=== PATIENT | male | born 1980 | race Caucasian/White ===

== ENCOUNTER 2021-07-30 16:06 | Observation (INO) ==
[2021-07-30] MEDS ORDERED: IOPAMIDOL 100 ML BOTTLE IV ONE (16:07)
--- NOTE | 2021-07-30 16:51 | Emergency Department Note ---
HPI General Chief complaint: Abdominal Pain Stated complaint: Abd pain Time Seen by Provider: 07/30/21 16:51 Source: patient Mode of arrival: ambulatory Limitations: no limitations History of Present Illness HPI Narrative: 41-year-old male with past medical history of HODA, A. fib on warfarin, hypertension, and obesity presenting with abdominal pain. Patient states he has had periumbilical abdominal pain that has been mild for the past week but today the pain became more severe and localized to his right periumbilical area. He had 3 episodes of nonbloody, nonbilious emesis. Denies any diarrhea or blood in the stool. No dysuria or hematuria. History of cholecystectomy, denies any other abdominal surgeries. No fever, cough, or shortness of breath. Related Data Previous Rx's Medication Instructions Recorded Cpap machine and supplies #1 ea 09/29/19 lisinopril 10 mg tablet 10 mg PO DAILY #90 tab 08/02/20 warfarin 10 mg tablet 10 mg PO QDAY #90 tab 08/02/20 metoprolol succinate 50 mg 100 mg PO QHS #90 tab 07/21/21 tablet,extended release 24 hr Allergies Allergy/AdvReac Type Severity Reaction Status Date / Time aspirin Allergy Mild Other Verified 07/30/21 16:06 Review of Systems ROS ROS Narrative: Narrative: Constitutional: Denies fever or chills ENT ED: Denies throat pain Cardiovascular: Denies chest pain or palpitations Respiratory: Denies shortness of breath or cough Gastrointestinal: Reports abdominal pain, nausea and vomiting; Denies diarrhea or melena Genitourinary: Denies dysuria or frequency Musculoskeletal: Denies back pain or joint swelling Integumentary: Denies rash Neurological: Denies headache Psychiatric: Denies anxiety Endocrine: Denies fatigue Hematological/Lymphatic: Denies easy bleeding COUNTS INCLUDE 234 BEDS AT THE [facility] Narrative Patient History Narrative: Narrative: Medical/Surgical/Family History All Active Problems (Updated 07/30/21 @ 19:11 by Cesar Pedraza MD) Partial small bowel obstruction (Acute) Abdominal hernia (Acute) Abdominal pain (Acute) Anticoagulated on Coumadin (Acute) Hay fever (Chronic) Allergies (Chronic) Atrial fibrillation (Chronic) Body mass index 50.0-59.9, adult (Chronic) Obstructive sleep apnea (Chronic) Morbid obesity (Chronic) Hypertension (Chronic) Biliary colic (Acute) Abdominal pain, acute, right upper quadrant (Acute) Chewing tobacco use (Acute) Obstructive sleep apnea (Chronic) Morbid obesity due to excess calories (Chronic) Hypertension (Acute) Atrial fibrillation with controlled ventricular rate (Acute) Upper abdominal pain (Acute) Medical History (Updated 07/30/21 @ 19:11 by Cesar Pedraza MD) Allergies Atrial fibrillation Body mass index 50.0-59.9, adult Hay fever Hypertension Morbid obesity Obstructive sleep apnea Surgical History History of laparoscopic cholecystectomy 01/25/2018 Family History Mother Hypertension Obstructive sleep apnea Social History Smoking Status: Smokeless tobacco Alcohol Intake Frequency: holiday/special occasion only Substance Use: does not use Exam Narrative Narrative: Narrative: General Limitations: no limitations General appearance: Present alert, in no apparent distress and obese Head Head: Present atraumatic and normocephalic Eye Eye: Present normal appearance and EOMI; Absent scleral icterus or conjunctival injection ENT ENT: Present normal oropharynx and mucous membranes moist Neck Neck: Present normal inspection, full ROM and trachea midline Chest Chest: Present symmetric chest wall rise Respiratory Respiratory: Present normal lung sounds bilaterally; Absent respiratory distress, wheezes, stridor, accessory muscle use or prolonged expiratory phase Cardiovascular Cardiovascular: Present regular rate and normal rhythm; Absent systolic murmur or diastolic murmur Adbominal Abdominal: Present soft and other (Right periumbilical hernia noted with tenderness but no erythema or warmth.); Absent distention, guarding or rebound Extremities Extremities: Present normal inspection; Absent pretibial edema Back Back: Present normal inspection; Absent CVA tenderness (R) or CVA tenderness (L) Neurological Neurological: Present alert, oriented X3 and CN II-XII intact; Absent motor sensory deficit Psychiatric Psychiatric: Present normal affect and normal mood Skin Skin: Present warm (WNL) and dry Course Consultations Consultation #1: Dr. Carter, general surgery Time: 18:54 Vital Signs Vital signs: Vital Signs Temperature 97.7 F 07/30/21 16:07 Pulse Rate 103 H 07/30/21 16:07 Respiratory Rate 20 07/30/21 16:07 Blood Pressure 171/100 07/30/21 16:07 Pulse Oximetry (%) 98 07/30/21 16:07 Temperature 97.7 F 07/30/21 16:07 Pulse Rate 67 07/30/21 18:30 Respiratory Rate 20 07/30/21 16:07 Blood Pressure 140/105 07/30/21 17:16 Pulse Oximetry (%) 95 07/30/21 18:30 MDM MDM Narrative Medical decision making narrative: 41-year-old male presenting with abdominal pain. He does have tenderness and what feels like a periumbilical hernia on exam. Labs are stable, INR is 1.2. EKG shows atrial fibrillation with no ischemic changes. CT abdomen obtained which shows a 9cm paraumbilical hernia containing a partially obstructed segment of the distal ileum with moderate edema in the hernia sac. I attempted to reduce the hernia at bedside after placing the patient in Trendelenburg and applying i ce to the hernia area. I was unable to palpate the defect or reduce the hernia. I discussed the patient with Dr. Carter of surgery who will come to the ED and evaluate the patient. Patient signed out to oncoming MD, Dr. Grey, pending surgical consultation. Lab Data Lab results reviewed: Yes I reviewed the patient's lab results. Result diagrams: 07/30/21 17:09 07/30/21 17:09 Labs: Lab Results 07/30/21 07/30/21 07/30/21 Range/Units 17:09 17:09 17:10 WBC 14.7 H (4.5-11.0) K/mcL RBC 6.04 (4.63-6.08) M/mcL Hgb 17.1 (13.7-17.5) g/dL Hct 52.3 H (40.1-51.0) % MCV 86.6 (80.0-100.0) fL MCH 28.3 (26.0-34.0) pg MCHC 32.7 (31.0-36.0) g/dL RDW 12.9 (11.5-14.5) % Plt Count 304 (140-440) K/mcL MPV 11.2 H (7.4-10.4) fL Neut % (Auto) 88.4 H (38.0-78.0) % Lymph % (Auto) 6.5 L (15.5-49.0) % [place] % (Auto) 4.9 (1.0-12.0) % Eos % (Auto) 0.1 (0.0-7.0) % Baso % (Auto) 0.1 (0.0-2.0) % Lymph # (Auto) 0.96 L (1.50-4.80) K/mcL [place] # (Auto) 0.72 (0.10-0.90) K/mcL Eos # (Auto) 0.01 (0.00-0.70) K/mcL Baso # (Auto) 0.02 (0.00-0.30) K/mcL Absolute Neutrophils 12.95 H (1.80-8.00) K/mcL PT 16.1 H (11.9-14.5) sec INR 1.2 H (0.9-1.1) Sodium 134 (133-145) mmol/L Potassium 4.4 (3.3-5.1) mmol/L Chloride 97 (96-108) mmol/L Carbon Dioxide 25 (22-30) mmol/L Anion Gap 12.0 (8.0-16.0) BUN 9 (6-20) mg/dL Creatinine 0.9 (0.7-1.2) mg/dL GFR Calculation 105 Glucose 119 H (70-105) mg/dL Calcium 9.0 (8.6-10.4) mg/dL Total Bilirubin 0.9 (0.1-1.0) mg/dL AST 17 (<40) U/L ALT 18 (<40) U/L Alkaline Phosphatase 77 (39-117) U/L Total Protein 7.6 (5.9-8.4) gm/dL Albumin 4.0 (3.2-5.2) gm/dL Globulin 3.6 (2.2-3.7) gm/dL Albumin/Globulin Ratio 1.1 (1.0-2.3) Lipase 13 (7-60) U/L Radiology Data Radiology results reviewed: Yes I reviewed the patient's radiology results. Radiology results narrative: Ordering Physician:Cesar Pedraza M.D. Date of Service:07/30/21 Procedure(s):CT abdomen pelvis w con CLINICAL INFORMATION: Abdominal pain and vomiting COMPARISON: None. TECHNIQUE: Following enteric contrast, 80 cc of Isovue-370 were injected intravenously, and 60 seconds later, 0.625 mm helical slices were obtained from the mid heart through the subtrochanteric regions. Following reconstruction, 2.5 mm sagittal, coronal and axial reformatted images were processed and reviewed at bone, lung and soft tissue windows. Five minutes later, 0.625 mm helical slices were obtained from the mid heart through the kidneys and viewed at soft tissue windows.The exam was performed using radiation dose optimization techniques including, but not limited to, automated exposure control, adjustment of the mA and/or kV according to patient size and use of iterative reconstruction technique. FINDINGS: The lung bases are clear. No effusions. The visualized heart is grossly normal. Abdominal images show the gallbladder and bile ducts, liver, both kidneys, adrenal glands, spleen, pancreas and aorta, including aortic branches, are normal in size, configuration and attenuation without focal lesion. There is no free air or adenopathy. Pelvic images show normal urinary bladder, prostate and seminal vesicles. A 9 cm periumbilical hernia contains a segment of ileum and edematous mesenteric fat. It has resulted in partial small bowel obstruction: The proximal small bowel and stomach are mildly dilated and the small bowel, distal to the hernia is decompressed. Colon is unremarkable. Small amount of free fluid is noted in the true pelvis Bone windows show no osseous abnormality. L4-5 moderate broad disc protrusion results in moderate central canal, severe left and moderate right IV foraminal narrowing. The exiting L4 nerve roots are impinged IMPRESSION: 9 cm paraumbilical hernia containing a partially obstructed segment of distal ileum with moderate edema in hernia sac. Proximal small bowel is dilated with decompression of the distal small bowel. Small amount of free fluid in the true pelvis compatible with early third spacing. Interpreted and Authenticated by: Edilberto Feliz 07/30/21 EKG Data EKG #1: EKG attestation: Yes I reviewed and interpreted this EKG. and Yes There are no EKG findings of acute coronary syndrome EKG results narrative: Atrial fibrillation at [address] elevation or depression. Interpretation: no acute changes Discharge Plan Patient/Caregiver Discharge Instructions Pt seen by AUDIO VIDEO TECHNICIAN/PA only: No Clinical Impression: Partial small bowel obstruction, Abdominal hernia Patient Disposition: Still a Patient Follow up with: Stefani Carter ARNP [Primary Care Provider] - Prescriptions: No Action (DME) Cpap machine and supplies Qty: 1 0RF Rx Instructions: As directed metoprolol succinate 50 mg tablet extended release 24 hr 100 mg PO QHS Qty: 90 3RF lisinopril 10 mg tablet 10 mg PO DAILY Qty: 90 3RF warfarin 10 mg tablet 10 mg PO QDAY Qty: 90 3RF
[2021-07-30] MEDS ORDERED: morphine 4 MG/ML VIAL IV ONE ×2 (17:02→18:18)
[2021-07-30] MEDS ORDERED: 0.9 % SODIUM CHLORIDE 1,000 ML IV ONE (17:02)
[2021-07-30] MEDS ORDERED: ONDANSETRON 4 MG/2 ML VIAL IV ONE (17:02)
[2021-07-30 17:34] LABS: Basophils # (Auto) 0.02 K/mcL (0.00-0.30); Basophils % (Auto) 0.1 % (0.0-2.0); Eosinophils # (Auto) 0.01 K/mcL (0.00-0.70); Eosinophils % (Auto) 0.1 % (0.0-7.0); Hematocrit 52.3 % (40.1-51.0); Hemoglobin 17.1 g/dL (13.7-17.5); Lymphocytes # (Auto) 0.96 K/mcL (1.50-4.80); Lymphocytes % (Auto) 6.5 % (15.5-49.0); Mean Cell Volume 86.6 fL (80.0-100.0); Mean Corpuscular HGB Conc 32.7 g/dL (31.0-36.0); Mean Platelet Volume 11.2 fL (7.4-10.4); Monocytes # (Auto) 0.72 K/mcL (0.10-0.90); Monocytes % (Auto) 4.9 % (1.0-12.0); Neutrophils % (Auto) 88.4 % (38.0-78.0); Platelet Count 304 K/mcL (140-440); RBC 6.04 M/mcL (4.63-6.08); Red Cell Distribution Width 12.9 % (11.5-14.5); WBC 14.7 K/mcL (4.5-11.0)
[2021-07-30 17:56] LABS: ALT/SGPT 18 U/L (<40); AST/SGOT 17 U/L (<40); Albumin/Globulin Ratio 1.1 (1.0-2.3); Alkaline Phosphatase 77 U/L (39-117); Bilirubin,Total 0.9 mg/dL (0.1-1.0); Blood Urea Nitrogen 9 mg/dL (6-20); Carbon Dioxide 25 mmol/L (22-30); Chloride 97 mmol/L (96-108); Globulin 3.6 gm/dL (2.2-3.7); Glomerular Filtration Rate 105; Glucose 119 mg/dL (70-105)
--- NOTE | 2021-07-30 18:12 | Cat Scan Report ---
CLINICAL INFORMATION: Abdominal pain and vomiting COMPARISON: None. TECHNIQUE: Following enteric contrast, 80 cc of Isovue-370 were injected intravenously, and 60 seconds later, 0.625 mm helical slices were obtained from the mid heart through the subtrochanteric regions. Following reconstruction, 2.5 mm sagittal, coronal and axial reformatted images were processed and reviewed at bone, lung and soft tissue windows. Five minutes later, 0.625 mm helical slices were obtained from the mid heart through the kidneys and viewed at soft tissue windows.The exam was performed using radiation dose optimization techniques including, but not limited to, automated exposure control, adjustment of the mA and/or kV according to patient size and use of iterative reconstruction technique. FINDINGS: The lung bases are clear. No effusions. The visualized heart is grossly normal. Abdominal images show the gallbladder and bile ducts, liver, both kidneys, adrenal glands, spleen, pancreas and aorta, including aortic branches, are normal in size, configuration and attenuation without focal lesion. There is no free air or adenopathy. Pelvic images show normal urinary bladder, prostate and seminal vesicles. A 9 cm periumbilical hernia contains a segment of ileum and edematous mesenteric fat. It has resulted in partial small bowel obstruction: The proximal small bowel and stomach are mildly dilated and the small bowel, distal to the hernia is decompressed. Colon is unremarkable. Small amount of free fluid is noted in the true pelvis Bone windows show no osseous abnormality. L4-5 moderate broad disc protrusion results in moderate central canal, severe left and moderate right IV foraminal narrowing. The exiting L4 nerve roots are impinged IMPRESSION: 9 cm paraumbilical hernia containing a partially obstructed segment of distal ileum with moderate edema in hernia sac. Proximal small bowel is dilated with decompression of the distal small bowel. Small amount of free fluid in the true pelvis compatible with early third spacing. Interpreted and Authenticated by: Edilberto Feliz 07/30/21
[2021-07-30 18:50] LABS: INR 1.2 (0.9-1.1); Prothrombin Time 16.1 sec (11.9-14.5)
[2021-07-30] MEDS ORDERED: ONDANSETRON 4 MG/2 ML VIAL IV PRN (19:37)
--- NOTE | 2021-07-30 19:37 | General Surg History&Physical ---
HPI History of Present Illness Patient information: Note initiated : 07/30/21 at 7:28 pm Service Date, if different from initiated Date: [] Patient: Shay Wu a 41 y/o M admitted on for Abd pain. Chief Complaint: [] Chief complaint: Partial small bowel obstruction History of present illness: Mr. Wu is a 41 year old M admitted via the ER for partial small bowel obstruction. The patient states that he has had periumbilical pain for greater than a week. The pain became more severe this afternoon and he had episodes of nausea and vomiting. He is seen in the emergency room and CT shows a partial loop of small bowel in the supraumbilical fascial defect but without total obstruction. There is some thickening of the bowel and the distal bowel is decompressed compatible with partial small bowel obstruction. Patient is on Coumadin with PT of 16. He is admitted and will be given fresh frozen plasma tonight with plans for repair of incisional hernia in the morning. Review of Systems All systems: reviewed and no additional remarkable complaints except as stated Cardiovascular Additional comments: Chronic atrial fibrillation on Coumadin therapy Respiratory Respiratory: Present snoring Additional comments: Chronic sleep apnea PFSH PFSH All Active Problems (Updated 07/30/21 @ 19:35 by Graciela Carter MD) Incisional hernia (Acute) Partial small bowel obstruction (Acute) Abdominal hernia (Acute) Abdominal pain (Acute) Anticoagulated on Coumadin (Acute) Hay fever (Chronic) Allergies (Chronic) Atrial fibrillation (Chronic) Body mass index 50.0-59.9, adult (Chronic) Obstructive sleep apnea (Chronic) Morbid obesity (Chronic) Hypertension (Chronic) Biliary colic (Acute) Abdominal pain, acute, right upper quadrant (Acute) Chewing tobacco use (Acute) Obstructive sleep apnea (Chronic) Morbid obesity due to excess calories (Chronic) Hypertension (Acute) Atrial fibrillation with controlled ventricular rate (Acute) Upper abdominal pain (Acute) Medical History (Updated 07/30/21 @ 19:35 by Graciela Carter MD) Allergies Atrial fibrillation Body mass index 50.0-59.9, adult Hay fever Hypertension Morbid obesity Obstructive sleep apnea Surgical History History of laparoscopic cholecystectomy 01/25/2018 Family History Mother Hypertension Obstructive sleep apnea Social History marital status: occupational status: 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 other: 2 Children alcohol intake frequency: holiday/special occasion only substance use type: does not use MEDS/ALLERGIES Home Medications and Allergies Home Medications Medication Instructions Recorded Confirmed Type Cpap machine and supplies #1 ea 09/29/19 07/30/21 Rx lisinopril 10 mg tablet 10 mg PO DAILY #90 tab 08/02/20 07/30/21 Rx warfarin 10 mg tablet 10 mg PO QDAY #90 tab 08/02/20 07/30/21 Rx metoprolol succinate 50 mg 100 mg PO QHS #90 tab 07/21/21 07/30/21 Rx tablet,extended release 24 hr Allergies Allergy/AdvReac Type Severity Reaction Status Date / Time aspirin Allergy Mild Other Verified 07/30/21 16:06 Physical Examination Vital Signs Vital signs: Temp Pulse Resp BP Pulse Ox 97.7 F 76 20 140/105 96 07/30/21 16:07 07/30/21 19:07 07/30/21 16:07 07/30/21 17:16 07/30/21 19:07 General physical appearance General physical exam: obese (Morbid obesity) Eyes Eye exam: PERRL and normal ocular movement ENT ENT exam: normal mucosa, no hearing loss and no congestion Head Head exam IM: Present atraumatic, normal inspection and normocephalic Neck Neck exam: no masses, no bruits, trachea midline, no lymphadenopathy and no venous distension Cardiovascular Cardiovascular exam IM: Present irregular rhythm, +S1 and +S2 Respiratory Respiratory exam: normal expansion, normal respiratory effort, clear to auscultation and other (Good clear breath sounds bilaterally) Abdomen Abdomen: Present bowel sounds (Active bowel sounds) and masses (Tender periumbilical mass) Hernia: Present incisional (Supraumbilical incisional hernia) Integumentary Integumentary: Present no rash, no growths and no abnormal pigmentation Neurologic Neurologic: Present normal coordination and normal sensation Musculoskeletal Musculoskeletal: Present normal gait and normal posture Psychiatric Psychiatric: Present oriented to time, oriented to person, oriented to place, speech is normal and memory intact Results Labs Result diagrams: 07/30/21 17:09 07/30/21 17:09 Labs: Abnormal lab results 07/30/21 07/30/21 07/30/21 Range/Units 17:09 17:09 17:10 WBC 14.7 H (4.5-11.0) K/mcL Hct 52.3 H (40.1-51.0) % MPV 11.2 H (7.4-10.4) fL Neut % (Auto) 88.4 H (38.0-78.0) % Lymph % (Auto) 6.5 L (15.5-49.0) % Lymph # (Auto) 0.96 L (1.50-4.80) K/mcL Absolute Neutrophils 12.95 H (1.80-8.00) K/mcL PT 16.1 H (11.9-14.5) sec INR 1.2 H (0.9-1.1) Glucose 119 H (70-105) mg/dL Diabetes panel 07/30/21 Range/Units 17:09 Sodium 134 (133-145) mmol/L Potassium 4.4 (3.3-5.1) mmol/L Chloride 97 (96-108) mmol/L Carbon Dioxide 25 (22-30) mmol/L BUN 9 (6-20) mg/dL Creatinine 0.9 (0.7-1.2) mg/dL Glucose 119 H (70-105) mg/dL Calcium 9.0 (8.6-10.4) mg/dL AST 17 (<40) U/L ALT 18 (<40) U/L Alkaline Phosphatase 77 (39-117) U/L Total Protein 7.6 (5.9-8.4) gm/dL Albumin 4.0 (3.2-5.2) gm/dL Calcium panel 07/30/21 Range/Units 17:09 Calcium 9.0 (8.6-10.4) mg/dL Albumin 4.0 (3.2-5.2) gm/dL Pituitary panel 07/30/21 Range/Units 17:09 Sodium 134 (133-145) mmol/L Potassium 4.4 (3.3-5.1) mmol/L Chloride 97 (96-108) mmol/L Carbon Dioxide 25 (22-30) mmol/L BUN 9 (6-20) mg/dL Creatinine 0.9 (0.7-1.2) mg/dL Glucose 119 H (70-105) mg/dL Calcium 9.0 (8.6-10.4) mg/dL Adrenal panel 07/30/21 Range/Units 17:09 Sodium 134 (133-145) mmol/L Potassium 4.4 (3.3-5.1) mmol/L Chloride 97 (96-108) mmol/L Carbon Dioxide 25 (22-30) mmol/L BUN 9 (6-20) mg/dL Creatinine 0.9 (0.7-1.2) mg/dL Glucose 119 H (70-105) mg/dL Calcium 9.0 (8.6-10.4) mg/dL Total Bilirubin 0.9 (0.1-1.0) mg/dL AST 17 (<40) U/L ALT 18 (<40) U/L Alkaline Phosphatase 77 (39-117) U/L Total Protein 7.6 (5.9-8.4) gm/dL Albumin 4.0 (3.2-5.2) gm/dL All other labs normal. A/P Assessment and plan (1) Partial small bowel obstruction: Status: Acute (2) Incisional hernia: Status: Acute (3) Anticoagulated on Coumadin: Status: Acute (4) Obstructive sleep apnea: Status: Chronic (5) Morbid obesity: Status: Chronic (6) Hypertension: Status: Chronic Qualifiers: Hypertension type: essential hypertension Qualified Code(s): I10 - Essential (primary) hypertension (7) Atrial fibrillation with controlled ventricular rate: Status: Acute Narrative A/P Narrative: PT/INR in the morning Transfuse 2 units fresh frozen plasma tonight N.p.o. except for ice chips and popsicles with total n.p.o. after midnight Zosyn 4.5 g IV every 6 hours EKG Chest x-ray Time Spent With Patient Time: Total time spent is greater than 50% in coordination of care (as documented) at patient's floor/unit and/or counseling patient:
[2021-07-30] MEDS ORDERED: PROMETHAZINE 25 MG/ML VIAL IM PRN (19:42)
[2021-07-30] MEDS ORDERED: 0.9 % SODIUM CHLORIDE 250 ML IV SCH (19:45)
[2021-07-30] MEDS: HYDROmorphone 1 MG/ML SYRINGE IV PRN ×2 (19:52→22:24)
[2021-07-30] MEDS: 0.9 % SODIUM CHLORIDE 1,000 ML IV SCH (22:18)
[2021-07-30] MEDS: PIPERACILLIN SODIUM/TAZOBACTAM 4.5 GM in DEXTROSE 5% IN WATER 50 ML IV SCH (22:24)
[2021-07-30] MEDS: 0.9 % SODIUM CHLORIDE 10 ML SYRINGE IV SCH (22:32)
[2021-07-30] MEDS: DOCUSATE SODIUM 100 MG CAPSULE PO SCH (22:32)
[2021-07-30] MEDS: SENNOSIDES 1 TABLET PO SCH (22:32)
[2021-07-31] MEDS: HYDROmorphone 1 MG/ML SYRINGE IV PRN ×3 (01:36→06:46)
[2021-07-31] MEDS: PIPERACILLIN SODIUM/TAZOBACTAM 4.5 GM in DEXTROSE 5% IN WATER 50 ML IV SCH ×5 (02:13→23:07)
[2021-07-31 04:46] LABS: Appearance,Urine Clear (Clear); Bilirubin,Urine Negative (Negative); Color,Urine Yellow; Culture Indicated,Urine No; Glucose,Urine (UA) Negative (Negative); Ketones,Urine Trace mg/dL (Negative); Leukocyte Esterase,Urine Negative /uL (Negative); Mucus,Urine FEW /hpf; Nitrate,Urine Negative (Negative); PH,Urine 5.5 (5.0-9.0); Protein,Urine Trace mg/dL (Negative); Specific Gravity,Urine 1.025 (1.000-1.035); Urine Blood Negative ery/mcL (Negative); Urine RBC < 1 /hpf (0-3); Urine Squamous Epithelial Cell 2 /hpf (0-4); Urine WBC 3 /hpf (0-4); Urobilinogen,Urine Normal
[2021-07-31] MEDS: 0.9 % SODIUM CHLORIDE 10 ML SYRINGE IV SCH ×3 (05:20→21:36)
[2021-07-31 06:44] LABS: Basophils # (Auto) 0.02 K/mcL (0.00-0.30); Basophils % (Auto) 0.1 % (0.0-2.0); Eosinophils # (Auto) 0.02 K/mcL (0.00-0.70); Eosinophils % (Auto) 0.1 % (0.0-7.0); Hematocrit 49.6 % (40.1-51.0); Lymphocytes # (Auto) 1.43 K/mcL (1.50-4.80); Lymphocytes % (Auto) 8.9 % (15.5-49.0); Mean Cell Volume 88.3 fL (80.0-100.0); Mean Corpuscular HGB Conc 32.3 g/dL (31.0-36.0); Mean Platelet Volume 11.2 fL (7.4-10.4); Monocytes # (Auto) 1.39 K/mcL (0.10-0.90); Monocytes % (Auto) 8.7 % (1.0-12.0); Neutrophils % (Auto) 82.2 % (38.0-78.0); Platelet Count 279 K/mcL (140-440); RBC 5.62 M/mcL (4.63-6.08)
[2021-07-31] MEDS ORDERED: IPRATROPIUM/ALBUTEROL 3 ML AMPUL.NEB NEB PRN ×2 (07:30→09:42)
[2021-07-31] MEDS ORDERED: SCOPOLAMINE 1 PATCH PATCH TOPICAL PRN (07:30)
[2021-07-31] MEDS: DOCUSATE SODIUM 100 MG CAPSULE PO SCH ×2 (07:55→21:35)
[2021-07-31] MEDS ORDERED: DEXAMETHASONE 10 MG/ML VIAL ONE (08:50)
[2021-07-31] MEDS ORDERED: LIDOCAINE HCL/PF 100 MG/5 ML SYRINGE IV ONE (08:50)
[2021-07-31] MEDS ORDERED: KETAMINE 50 MG/ML Syringe (ANEST) IV ONE (08:50)
[2021-07-31] MEDS ORDERED: METOPROLOL TARTRATE 5 MG/5 ML VIAL IV ONE (08:50)
[2021-07-31] MEDS ORDERED: MAGNESIUM SULFATE 4 GM/100 ML BAG IV ONE (08:50)
[2021-07-31] MEDS ORDERED: SUGAMMADEX SODIUM 200 MG/2 ML VIAL IV ONE (08:50)
[2021-07-31] MEDS ORDERED: ONDANSETRON 4 MG/2 ML VIAL ONE (08:50)
[2021-07-31] MEDS ORDERED: ROCURONIUM 10 MG/ML ML IV ONE (08:50)
[2021-07-31] MEDS ORDERED: PROPOFOL 200 MG/20 ML VIAL IV ONE (08:50)
--- NOTE | 2021-07-31 09:21 | EKG ---
[facility] Test Date: 2021-07-30 Pat Name: Shay Wu Department: ED Room: Gender: Male Concert Manager: nettie : [phone] Requested By: Cesar Pedraza Order Number: [id number] Reading MD: Erasmo Mancia Measurements Intervals [place] Rate: 92 P: [place]: QRS: 31 QRSD: 112 T: 18 QT: 356 QTc: 441 Interpretive Statements Atrial fibrillation Borderline intraventricular conduction delay Low voltage, precordial leads Electronically Signed On 07-31-2021 9:21:16 PST by Erasmo Mancia /store/M0/[id number]/[id number]
[2021-07-31] MEDS ORDERED: GENTAMICIN SULFATE 800 MG/20 ML VIAL IR ONE (09:32)
[2021-07-31] MEDS ORDERED: ONDANSETRON 4 MG/2 ML VIAL IV PRN (09:42)
[2021-07-31] MEDS ORDERED: diphenhydrAMINE 50 MG/ML VIAL IV PRN (09:42)
[2021-07-31] MEDS ORDERED: LACTATED RINGERS 250 ML IV PRN (09:42)
[2021-07-31] MEDS ORDERED: KETOROLAC 30 MG/ML VIAL IV PRN (09:42)
[2021-07-31] MEDS ORDERED: MEPERIDINE 25 MG/ML VIAL IV PRN (09:42)
[2021-07-31] MEDS ORDERED: ACETAMINOPHEN 1,000 MG/100 ML BAG IV ONE (09:42)
[2021-07-31] MEDS ORDERED: NALOXONE HCL 0.4 MG/ML VIAL IV PRN (09:42)
[2021-07-31] MEDS ORDERED: PROMETHAZINE 25 MG/ML VIAL IV PRN (09:42)
[2021-07-31] MEDS ORDERED: fentaNYL 100 MCG/2 ML VIAL IV PRN (09:42)
[2021-07-31] MEDS ORDERED: VANCOMYCIN 1 GM VIAL TOPICAL SCH (09:45)
[2021-07-31] MEDS ORDERED: LACTATED RINGERS 1,000 ML IV SCH (09:45)
--- NOTE | 2021-07-31 10:12 | Brief Operative Note ---
Brief Operative Note Date of procedure: 07/31/21 Pre-op diagnosis: incisional hernia with small bowel obstruction Post-op diagnosis: other (incisional hernia with small bowel obstruction) Procedure: incisional hernia repair with mesh graft Grafts/Implants: Yes (surgimesh) Anesthesia: GETA Findings: moderate sized incisional hernia with incarcerated small bowel loop;bowel was edematous but fully viable Complications: none Surgeon: Graciela Carter Estimated blood loss (cc): 25 Specimens Removed/Pathology: other (hernia sac and omentum) Condition: stable Disposition: PACU
[2021-07-31] MEDS ORDERED: oxyCODONE HCL 5 MG TABLET PO PRN (10:14)
[2021-07-31] MEDS: 0.9 % SODIUM CHLORIDE 1,000 ML IV SCH (19:17)
[2021-07-31] MEDS: SENNOSIDES 1 TABLET PO SCH (21:35)
[2021-08-01] MEDS: 0.9 % SODIUM CHLORIDE 1,000 ML IV SCH
[2021-08-01] MEDS: PIPERACILLIN SODIUM/TAZOBACTAM 4.5 GM in DEXTROSE 5% IN WATER 50 ML IV SCH (06:20)
[2021-08-01] MEDS: 0.9 % SODIUM CHLORIDE 10 ML SYRINGE IV SCH (07:05)
[2021-08-01 07:22] LABS: Basophils # (Auto) 0.01 K/mcL (0.00-0.30); Basophils % (Auto) 0.1 % (0.0-2.0); Eosinophils # (Auto) 0 K/mcL (0.00-0.70); Eosinophils % (Auto) 0 % (0.0-7.0); Hematocrit 43.6 % (40.1-51.0); Hemoglobin 14.3 g/dL (13.7-17.5); Lymphocytes # (Auto) 1.09 K/mcL (1.50-4.80); Lymphocytes % (Auto) 8.4 % (15.5-49.0); Mean Cell Volume 88.6 fL (80.0-100.0); Mean Corpuscular HGB Conc 32.8 g/dL (31.0-36.0); Mean Platelet Volume 11.6 fL (7.4-10.4); Monocytes # (Auto) 0.93 K/mcL (0.10-0.90); Monocytes % (Auto) 7.2 % (1.0-12.0); Neutrophils % (Auto) 84.3 % (38.0-78.0); Platelet Count 227 K/mcL (140-440); RBC 4.92 M/mcL (4.63-6.08); Red Cell Distribution Width 12.7 % (11.5-14.5); WBC 12.9 K/mcL (4.5-11.0)
[2021-08-01] MEDS: DOCUSATE SODIUM 100 MG CAPSULE PO SCH (08:00)
--- NOTE | 2021-08-01 10:41 | Discharge Summary ---
Discharge Provider Provider Patient information: Note initiated : 08/01/21 at 10:41 am Service Date, if different from initiated Date: [] Patient: Shay Wu 41 y/o M admitted on 07/30/21 for Abd pain. Chief Complaint: [] Date of admission: 07/30/21 21:30 Discharge date: 08/01/21 Primary care physician: Stefani Carter Admitting clinician: Graciela Carter Attending physician on admission: Graciela Carter Consults: 07/30/21 Consult to Physician [CONS] Stat Comment: Consulting Provider: Graciela Carter Reason For Exam: Physician to Consult Attending physician on discharge: Graciela Carter Discharging clinician: Graciela Carter COURSE Hospital Course Hospital course: 41-year-old male admitted on 30 July 2021 with acute abdominal pain and nausea. Patient was noted to have partial obstruction and an incarcerated hernia of anterior abdominal. He had urgent laparotomy on 31 July with reduction of the small bowel. The bowel was viable. His hernia was fixed with mesh graft and repaired. He has done well and is stable for discharge. Discharge diagnosis: Incarcerated incisional hernia with small bowel obstruction Secondary discharge diagnosis: Hypertension Reason for admission: Small bowel obstruction Procedures: Laparotomy with repair of incisional hernia Pertinent studies/significant findings: CT of abdomen and pelvis with contrast Complications: None Time Spent with Patient Time attestation: Total time spent providing and/or coordinating discharge services: Physical Examination Vital Signs Vital signs: Temp Pulse Resp BP Pulse Ox 98.6 F 85 16 141/96 98 08/01/21 07:22 08/01/21 07:22 08/01/21 07:22 08/01/21 07:22 08/01/21 07:22 Eyes Eye exam: PERRL and normal ocular movement ENT ENT exam: normal mucosa and no congestion Head Head exam IM: Present atraumatic, normal inspection and normocephalic Neck Neck exam: trachea midline, no lymphadenopathy and no venous distension Cardiovascular Cardiovascular exam IM: Present normal rate and rhythm, RRR, +S1 and +S2; Absent JVD Respiratory Respiratory exam: normal expansion, normal respiratory effort and clear to auscultation Abdomen Abdomen: Present tender (Mild incisional tenderness) Integumentary Integumentary: Present no rash, no growths and no abnormal pigmentation Neurologic Neurologic: Present normal coordination and normal sensation Musculoskeletal Musculoskeletal: Present normal gait and normal posture Psychiatric Psychiatric: Present oriented to time, oriented to person, oriented to place, speech is normal and memory intact Discharge Plan Patient/Caregiver Discharge Instructions Activity: increase activity as tolerated Diet: Regular Diet Instructions: Bowel Obstruction (DC), Umbilical Hernia Repair (DC) Activity Restrictions/Additional Instructions: Resume home diet as tolerated. Increase activity as tolerated. Follow up with Graciela Carter on 08/18/21 at 9:45am. Keep dressing dry. Do not scrub dressing. Do not use soaps, creams, or lotions over the dressing. Pat dry. No bathing or soaking in hot tub until released by surgeon. If you need a new dressing, please follow-up with Dr. Miller office. Return to ER for fever, chills, uncontrolled pain, unable to go to the bathroom, nausea and/or vomiting, swelling, redness, signs of infection, shortness of breath, chest pain, return of symptoms, or other acute symptoms. This discharge packet is provided to you to help keep you informed about your care. We want to ensure you get everything you need when you go home. You will also be receiving a call from us in a few days to follow up with you and see how you are doing since your discharge. This gives us a chance to listen to any concerns you maybe experiencing since you were discharged or any additional needs you may have, as well as providing us feedback on your care experience. We strive to always provide excellent care and thank you for your feedback and for choosing [facility]. Prescriptions: No Action (DME) Cpap machine and supplies Qty: 1 0RF Rx Instructions: As directed metoprolol succinate 50 mg tablet extended release 24 hr 100 mg PO QHS Qty: 90 3RF lisinopril 10 mg tablet 10 mg PO DAILY Qty: 90 3RF warfarin 10 mg tablet 10 mg PO QDAY Qty: 90 3RF Follow Up Plan Follow up with: Graciela Carter MD [Physician] - 08/18/21 9:45 am Stefani Carter ARNP [Primary Care Provider] - Patient Disposition: Home, Self-Care Plan of Treatment: Hold warfarin for 3 more days Prognosis: Good Rehab Potential: Good I certify that the patient requires SNF services: No Overall status at discharge: patient is progressing back to baseline Discharge Orders: Discharge Order (Routine); Ordered 08/01/21 Ordered By: Graciela Carter Pending Pending Pending: Resuscitation Status Resuscitate (Full Code) Diet Full Liquid Diet Start Jenn Jul 31 1121 Docusate Sodium (Docusate Sodium 100 Mg Capsule) 100 mg PO BID [facility] Last Admin: 08/01/21 08:00 Dose: Not Given Documented by: Admin: 07/31/21 21:35 Dose: 100 mg Documented by: Admin: 07/31/21 07:55 Dose: Not Given Documented by: Admin: 07/30/21 22:32 Dose: Not Given Documented by: JASON Hydromorphone HCl (Hydromorphone 1 Mg/Ml Syringe) 1 mg IV Q2HP PRN; Protocol PRN Reason: Per Pain Protocol Last Admin: 07/31/21 06:46 Dose: 1 mg Documented by: Admin: 07/31/21 03:33 Dose: 1 mg Documented by: Admin: 07/31/21 01:36 Dose: 1 mg Documented by: Admin: 07/30/21 22:24 Dose: 1 mg Documented by: Admin: 07/30/21 19:52 Dose: 1 mg Documented by: BARBY Sodium Chloride (Sodium Chloride 0.9%) 1,000 mls @ 75 mls/hr IV .[id number] [facility] Last Admin: 08/01/21 00:00 Dose: Not Given Documented by: Admin: 07/31/21 19:17 Dose: 75 mls/hr Documented by: Infusion: 07/31/21 13:11 Dose: 75 mls/hr Documented by: Infusion: 07/31/21 02:14 Dose: 75 mls/hr Documented by: Infusion: 07/31/21 00:41 Dose: 0 mls/hr Documented by: Admin: 07/30/21 22:18 Dose: 75 mls/hr Documented by: JASON Piperacillin Sod/Tazobactam (Sod 4.5 gm/ Dextrose) 50 mls @ 100 mls/hr IV Q6H GRICELDA; Protocol Last Infusion: 08/01/21 07:00 Dose: 0 mls/hr Documented by: Admin: 08/01/21 06:20 Dose: 100 mls/hr Documented by: Infusion: 07/31/21 23:40 Dose: 0 mls/hr Documented by: Admin: 07/31/21 23:07 Dose: 100 mls/hr Documented by: Infusion: 07/31/21 18:25 Dose: 0 mls/hr Documented by: Admin: 07/31/21 17:51 Dose: 100 mls/hr Documented by: Infusion: 07/31/21 13:00 Dose: 0 mls/hr Documented by: Admin: 07/31/21 12:13 Dose: 100 mls/hr Documented by: Infusion: 07/31/21 09:12 Dose: 0 mls/hr Documented by: Admin: 07/31/21 08:20 Dose: 100 mls/hr Documented by: Infusion: 07/31/21 03:08 Dose: 0 mls/hr Documented by: Admin: 07/31/21 02:13 Dose: 100 mls/hr Documented by: Infusion: 07/30/21 23:10 Dose: 0 mls/hr Documented by: Admin: 07/30/21 22:24 Dose: 100 mls/hr Documented by: JASON Senna (Sennosides 1 Tablet) 2 tab PO HS [facility] Last Admin: 07/31/21 21:35 Dose: 2 tab Documented by: Admin: 07/30/21 22:32 Dose: Not Given Documented by: JASON Sodium Chloride (0.9 % Sodium Chloride 10 Ml Syringe) 10 ml IV Q8 [facility] Last Admin: 08/01/21 07:05 Dose: Not Given Documented by: Admin: 07/31/21 21:36 Dose: Not Given Documented by: Admin: 07/31/21 14:08 Dose: Not Given Documented by: Admin: 07/31/21 05:20 Dose: Not Given Documented by: Admin: 07/30/21 22:32 Dose: Not Given Documented by: JASON Shift Summary 08/01/21 03:43 Shift Summary by Shay Jackson Addendum entered by Shay Jackson 08/01/21 05:03: Pt up to BR & had [facility] med loose BM @ 0430. Original Note: Pt has rested very well tonight. He has had no to slight ABD pain - no PRN pain med required. No N/V. Up in Rm (I) - voiding per urinal LG amts. Pt also up to BR - had med loose BM x1. Pt able to manage IV pole (I) - gait stable w/o device. Midline ABD incision w/ sabrina, sm amt sanguinous drainage, & film dressing - dry & intact. Saline lock to his LT A/C - flushed & patent. NS infusing to his RT hand @ 75ml/hr. VS - WNL on R.A.. H.R. irregular 2nd to Hx of A-Fib. He is A&O x4, calm, pleasant, and cooperative. Initialized on 08/01/21 03:43 - END OF NOTE
--- NOTE | 2021-08-13 14:07 | Operative Note ---
DATE OF OPERATION: 07/31/2021 PREOPERATIVE DIAGNOSIS: Incisional hernia with small bowel obstruction. POSTOPERATIVE DIAGNOSIS: Incisional hernia with small bowel obstruction. PROCEDURE: Incisional hernia repair with mesh graft. SURGEON: Graciela Carter M.D. FINDINGS: Moderate-sized incisional hernia with incarcerated small bowel loop. The bowel was edematous, but fully viable. DESCRIPTION OF PROCEDURE: Under general anesthesia, the patient's abdomen was prepped and draped in a sterile field. A midline incision was made over the mass in the supraumbilical midline. It was extended distal to the umbilicus. The incision was extended into the subcutaneous tissue where a moderate-sized incisional hernia with a thickened sac was encountered. A circumferential dissection of the sac was carried out down to the fascia. The neck of the sac was then incised circumferentially and excised. The bowel was slightly edematous, but was not hemorrhagic, and totally viable. The neck of the fascial defect was opened with electrocautery and the bowel was pushed back into the peritoneal cavity. A #7 circular skirted Surgimesh graft was placed. It was sutured circumferentially with interrupted 2-0 Prolene suture. Irrigation was carried out. The fascia was then closed transversely using multiple interrupted [id number] #1 Prolene sutures. Irrigation in the subcutaneous tissue was carried out. The subcutaneous tissue was closed with 2-0 Monocryl interrupted. The skin was closed with sabrina. The patient tolerated the procedure well. Tegaderm dressing was placed. He was awakened, transferred to a bed, and taken to the postanesthetic care unit in satisfactory condition. LCS:zonia Job ID: [id number] Doc ID: [id number] Graciela Carter M.D.
== END 2021-08-01 11:45 | disposition home or self-care (01) ==
LOC: MEDSUR 16:06 → ED 16:06 → MEDSUR 19:30
PROVIDERS: ADMIT Family Medicine Adult Medicine; ATTEND Family Medicine Adult Medicine